=== PATIENT | female | born 1990 | race Caucasian/White ===

== ENCOUNTER → 2023-03-12 | Outpatient (CLI) | payer BC, SELFPAY ==
[2023-03-12 12:48] LABS: Erythrocyte Sedimentation Rate 4 mm/hr (0-30)
[2023-03-12 12:50] LABS: Absolute Lymphocyte Count 1.59 X10^3/uL (0.83-4.51); Absolute Neutrophil Count 4.2 X10^3/uL (2.0-7.7); Basophil# 0.02 X10^3/uL; Basophil% 0.3 % (0-1); Eosinophil# 0.17 X10^3/uL; Eosinophils% 2.7 % (0-5); Hematocrit 42.9 % (37-47); Hemoglobin 13.6 g/dL (12.0-15.0); Lymphocyte # 1.59 X10^3/ul (0.83-4.51); Lymphocyte % 25.5 % (19-41); Mean Corp Hgb Conc 31.7 g/dL (32-36); Mean Corpuscular Hgb 29.4 pg (27.0-32.0); Mean Corpuscular Volume 92.9 fL (81-99); Mean Platelet Vol. 10.9 fl (6.2-12.0); Monocyte% 4.8 % (0-10); NRBC Flagged by Analyzer 0 % (0-5); Neutrophil # 4.15 X10^3/uL (2.7-7.7); Neutrophil % 66.5 % (47-70); Platelet Count 294 K/mm3 (150-450); RBC Distribution Width CV 13.8 % (11.6-14.6); RBC Distribution Width SD 47.1 fl (35.1-43.9); Red Blood Count 4.62 M/mm3 (4.2-5.4); White Blood Count 6.2 K/mm3 (4.4-11.0)
[2023-03-12 12:54] LABS: Color, Urine Yellow (Yellow); Glucose, Dipstick Normal (Normal); Ketone-Dipstick Negative (Negative); Leukocyte Esterase-Dipstick Negative /ul (Negative); Nitrite-Dipstick Negative (Negative); Occult Blood-Urine Negative /ul (Negative); Protein-Dipstick Negative (Negative); Urine Bilirubin Dipstick Negative (Negative); Urine Clarity Sl. Cloudy (Clear); Urine Urobilinogen Normal (Normal)
[2023-03-12 13:19] LABS: Protein, Urine (Random) < 6.0 mg/dL (<11.9); Protein:Creat Ratio 269 mg/g CRE (0-200)
[2023-03-12 13:22] LABS: ALB/GLOB Ratio 1.3 RATIO (0.9-2.4); AST(SGOT) 34 U/L (15-37); Alanine Aminotransfer ALT/SGPT 56 U/L (13-56); Albumin, Serum 4.1 g/dL (3.2-5.0); Alkaline Phosphatase 73 U/L (45-117); Anion Gap 4 (5-15); BUN 15 mg/dL (7-18); BUN/Creat Ratio 24.5 RATIO (10-20); CRP < 2.90 mg/L (0.0-3.0); Calcium,Total 9.1 mg/dL (8.5-10.1); Chloride 107 mmol/L (98-107); Creatinine, Serum 0.61 mg/dL (0.55-1.02); EST Glomerular Filtration Rate 120 mL/min (>60); Est Glom Filt Rate - Afr Amer 145 mL/min (>60); Globulin 3.2 g/dL (2.2-4.2); Glucose 86 mg/dL (74-106); Potassium 3.7 mmol/L (3.5-5.1); Protein, Total 7.3 g/dL (6.4-8.2); Rheumatoid Factor < 10.0 IU/mL (<15); Sodium Level 139 mmol/L (136-145)
[2023-03-12 14:01] LABS: Hepatitis B Surface Antibody Reactive; Hepatitis B Surface Antigen Non-Reactive (Nonreactive); Hepatitis C Antibody Non-Reactive (Nonreactive)
[2023-03-19 16:10] LABS: CCP IgG Antibodies 4 units (0-19); HLA B27 Negative (.)
== END | disposition home or self-care (01) ==
LOC: MTLAB 09:44
PROVIDERS: Referring Provider Internal Medicine Rheumatology; Visit Provider Internal Medicine Rheumatology
DX: M06.4 Inflammatory polyarthropathy (principal); M35.00 Sjogren syndrome, unspecified; K21.9 Gastro-esophageal reflux disease without esophagitis; K86.81 Exocrine pancreatic insufficiency
CPT/HCPCS: 36415; 80053; 81002; 81374; 82570; 84156; 85025; 85652; 86140; 86200; 86431; 86706; 86803; 87340

== ENCOUNTER → 2023-03-31 | Outpatient (CLI) | payer BC, SELFPAY ==
[2023-03-31 12:00] LABS: Lipase 40 U/L (13-75)
[2023-04-03 19:07] LABS: Immunoglobulin A 115 mg/dL (87-352); Immunoglobulin E 14 IU/mL (6-495); Immunoglobulin G 1024 mg/dL (586-1602); Immunoglobulin G, Subclass 1 618 mg/dL (248-810); Immunoglobulin G, Subclass 2 296 mg/dL (130-555); Immunoglobulin G, Subclass 3 39 mg/dL (15-102); Immunoglobulin G, Subclass 4 52 mg/dL (2-96); Immunoglobulin M 111 mg/dL (26-217)
== END | disposition home or self-care (01) ==
PROVIDERS: Nurse Practitioner Adult Health; Referring Provider Internal Medicine Gastroenterology; Visit Provider Internal Medicine Gastroenterology
DX: K86.81 Exocrine pancreatic insufficiency (principal)
CPT/HCPCS: 36415; 82784; 82785; 82787; 83690

== ENCOUNTER 2023-06-24 11:41 | Day surgery (SDC) | payer BC, SELFPAY ==
[2023-06-24] VITALS (7 sets, daily range): BP systolic 88–121; BP diastolic 55–74; PULSE 44–54; RESP 16–17; TEMP 36.1–36.6; O2SAT 96–100; BMI 21.5
--- NOTE | 2023-06-24 | GASB_PTH ---
PATIENT: RAVEN KUMAR LOC: EN U#:[id number] AGE/SX: 33/F ROOM: RE06/24/[address]: Dr. Kehinde Street DO : 1990 BED: DIS: 06/24/2023 SPEC #: [id number] RECD: 06/24/23 14:31 STATUS: MARIAH FRANKLIN #: [id number] PAXTON: 06/24/23 00:[address]: Kehinde Street DEPT: SURGICAL PATHOLOGY RECD BY: Pedro Eckert ENTERED: 06/25/23 11:40 SP TYPE: Gastric Bx OTHR DR: Trinidad Dias Tissues: A - Duodenum, NOS B - Gastric mucous membrane Procedures: Surgery Specimen Level IV HEADER OPERATION: EGD ([facility] [place]), biopsy PRE-OP DIAGNOSIS: Exocrine pancreatic insufficiency, abdominal pain, diarrhea TISSUE SUBMITTED: A - Duodenum biopsy, B - Pylorus biopsy MICROSCOPIC DIAGNOSIS A. Duodenum, biopsy: No pathologic change. B. Gastric pylorus, biopsy: Chronic gastritis. See comment. AM:jeff 06/26/2023 COMMENT B. The results of immunohistochemistry for Helicobacter pylori will be reported separately ([id number]). MICROSCOPIC DESCRIPTION Slides are reviewed. GROSS DESCRIPTION A - Received in fixative is one container labeled with the patient's name and designated duodenum biopsy. The specimen consists of multiple irregular fragments of light polo soft tissue that in aggregate measure 1.0 x 0.3 x 0.1 cm. The specimen is totally submitted in one cassette. B - Received in fixative is one container labeled with the patient's name and designated pylorus biopsy. The specimen consists of two irregular fragments of light polo soft tissue that in aggregate measure 0.6 x 0.3 x 0.1 cm. The specimen is totally submitted in one cassette. / RODY:jeff 06/25/2023 TC:3 CPT: 86755 x2
--- NOTE | 2023-06-24 12:08 | HP.PCM_ITS ---
History and Physical Date of Admission: 06/24/23 RAVEN KUMAR, is a 32 F who presents to the office today to establish with local gastroenterology practice for EPI. Her symptoms began in spring 2020 with reflux, bloating, diarrhea; then by the time she got into an appointment with GI she was , therefore she did not have endoscopy. Her symptoms became worse with the diet Whole 30--was eating more healthy fats. Got yellow, floating diarrhea then. Put on Creon by PCP and had significant improvement in all her symptoms. She eats a very healthy diet. She has been reintroducing health fats--has more steatorrhea, more bloating, so she is wondering about increasing dose of Creon. She currently takes Creon 1 capsule with snack and 2 capsules with meal. Her reflux is usually controlled with famotidine. She has tested negative for celiac disease. She does note that when she avoids gluten her keratosis pilaris resolves. Stool tests have been negative for infection. She reports less sinus headaches when she avoids dairy. Thinks she gets gallbladder pain after dairy, ice cream--RUQ pain that radiated to right scapula, and diarrhea. She does not eat any greasy or fatty foods. She has been diagnosed with likely Sjogren's by Merchandise Worker. She has mild dry eyes and dry mouth. Follows anti-inflammatory diet. ROS Const Constitutional: No fatigue ENT ENT: No difficulty swallowing Gastro GI: Positive for bloating; No abdominal pain, belching, change in bowel habits, change in stool character, coffee ground emesis, constipation, cramping, diarrhea, heartburn, difficulty swallowing, feeling full early, excessive flatus, incontinent of stools, Vomiting blood/hematemesis, Blood in stool, loose stools, Black,tarry stools, nausea/dyspepsia, pain with swallowing, vomiting or other Musc Musculoskeletal: No joint pain Skin Skin: No yellowing of the eye or itchy eyes Psych Psychiatric: No anxiety and No depression Endo Endocrine: No fatigue Aller/Imm Allergy/Immunologic: No itchy eyes Robin/Lymp Hematologic/Lymphatic: No easy bleeding or easy bruising Exam Const General: cooperative, healthy appearing and comfortable Nutritional Appearance: average body habitus Orientation: alert, awake and oriented x3 HENMT Head: normal to inspection Eyes Sclera: sclerae normal Resp Effort & Inspection: normal respiratory effort GI Inspection: normal to inspection Skin General: no rashes or lesions noted Neuro Gait: normal gait Psych Mood: congruent mood Quality Reporting Tobacco Screening ([facility] 138) Smoking Status: Never smoker Assessment and Plan Assessment and Plan (1) Exocrine pancreatic insufficiency: Status: Chronic Plan: 32 yr old female with EPI who does well on Creon; has increased steatorrhea due to increase in healthy fats, will increase Creon to 1-2 caps with snacks and 2-3 caps with meals EPI due to ?non-celiac gluten sensitivity; will eval for IBD and autoimmune pancreatitis EGD to eval for villous blunting (she will continue to consume gluten for now); consider if we need to add colonoscopy based on lab results RUQ US (at [facility] per pt's preference) to eval gallbladder; if normal then consider HIDA scan (2) Abdominal pain: Status: Acute Plan: see above (3) Diarrhea: Status: Acute Plan: see above Orders: Orders Lipase 03/31/23 K86.81 - Exocrine pancreatic insufficiency Immunoglobulins G/A/M/E 03/31/23 K86.81 - Exocrine pancreatic insufficiency IgG Subclasses 03/31/23 K86.81 - Exocrine pancreatic insufficiency Abdomen Limited 03/31/23 K86.81 - Exocrine pancreatic insufficiency, R10.9 - Unspecified abdominal pain, R19.7 - Diarrhea, unspecified Miscellaneous Lab Procedure 03/31/23 K86.81 - Exocrine pancreatic insufficiency Medications: New [id number]-[id number] 36,000-114,000- 180,000 unit (Creon) take 1-2 capsules with snacks, take 2-3 capsules with meals 360 caps 5RF I have examined the patient and the H&P has been reviewed. There are no clinical changes since date of exam.
[2023-06-24] MEDS: Lactated Ringers 1,000 ML 15 ML IV (12:11)
[2023-06-24 12:20] LABS: Internal QC Validated? YES +Cl - CLEAR BKGD
[2023-06-24 12:22] LABS: Pregnancy, Urine Negative Negative
--- NOTE | 2023-06-24 12:45 | IMM_PTH ---
PATIENT: RAVEN KUMAR LOC: EN U#:[id number] AGE/SX: 33/F ROOM: RE06/24/[address]: Dr. Kehinde Street DO : 1990 BED: DIS: 06/24/2023 SPEC #: [id number] RECD: 06/25/23 13:46 STATUS: MARIAH REQ #: [id number] PAXTON: 06/24/23 12:[address]: Kehinde Street DEPT: IMMUNOHISTOCHEMISTRY RECD BY: Lidia Mcclendon ENTERED: 06/25/23 13:47 SP TYPE: IMMUNO OTHR DR: Trinidad Dias Tissues: B - Pyloric antrum Procedures: H Pylori (initial) PHYSICIAN & INSTITUTION [place] [id number] SPECIMEN INFORMATION: Tissue Source: B - Pylorus Clinical Info: Exocrine pancreatic insufficiency, abdominal pain, diarrhea Specimen Number: [id number] CPT code: 26311 METHODOLOGY: Deparaffinized sections of prefer/formalin-fixed tissue or PAP/DQ stained slides are incubated with monoclonal/polyclonal antibodies/oligonucleotide probes. Localization is made via biotin free immunoperoxidase method. Appropriate controls are performed and reacted as expected. Results on target cell population are indicated in the following table: RESULTS: ANTIBODY / CLONE RESULT Block B H Pylori (polyclonal) negative These tests were developed and their performance characteristics determined by [facility]. They may not have been cleared or approved by the U.S. Food and Drug Administration. The FDA has determined that such clearance or approval is not necessary. The above immunohistochemical/dualISH markers are ordered and reviewed by the Pathologist. INTERPRETATION: Monica Pylorus, biopsy: Negative for Helicobacter pylori organisms. AM:jeff 06/26/2023
--- NOTE | 2023-06-24 13:15 | OP.EGD_ITS ---
Patient Name: Felisa Keys Procedure Date: 06/24/2023 12:43 PM Date of : 1990 Age: 33 Procedure: Upper GI endoscopy Indications: Epigastric abdominal pain, Personal history of digestive disease (unspecified) Providers: Kehinde Street DO Referring MD: Kehinde Street DO Medicines: Monitored Anesthesia Care Patient Profile: This is a 33 year old female. Refer to note in patient chart for documentation of history and physical. Patient has symptoms of chronic epigastric abdominal pain. Complications: No immediate complications. Procedure: Pre-Anesthesia Assessment: - Prior to the procedure, a History and Physical was performed, and patient medications and allergies were reviewed. The patient is competent. The risks and benefits of the procedure and the sedation options and risks were discussed with the patient. All questions were answered and informed consent was obtained. Patient identification and proposed procedure were verified by the physician. Mental Status Examination: normal. Prophylactic Antibiotics: The patient does not require prophylactic antibiotics. Prior Anticoagulants: The patient has taken no previous anticoagulant or antiplatelet agents. ASA Grade Assessment: II - A patient with mild systemic disease. After reviewing the risks and benefits, the patient was deemed in satisfactory condition to undergo the procedure. The anesthesia plan was to use monitored anesthesia care (MAC). Immediately prior to administration of medications, the patient was re-assessed for adequacy to receive sedatives. The heart rate, respiratory rate, oxygen saturations, blood pressure, adequacy of pulmonary ventilation, and response to care were monitored throughout the procedure. The physical status of the patient was re-assessed after the procedure. After obtaining informed consent, the endoscope was passed under direct vision. Throughout the procedure, the patient's blood pressure, pulse, and oxygen saturations were monitored continuously. The Endoscope was introduced through the mouth, and advanced to the second part of duodenum. The upper GI endoscopy was accomplished without difficulty. The patient tolerated the procedure well. Scope In: 12:53:25 PM Scope Out: 12:59:37 PM Total Procedure Duration Time 0 hours 6 minutes 12 seconds Findings: The examined esophagus was normal. Patchy mildly erythematous mucosa without bleeding was found in the prepyloric region of the stomach and at the pylorus. Biopsies were taken with a cold forceps for histology. Verification of patient identification for the specimen was done. Estimated blood loss was minimal. No gross lesions were noted in the second portion of the duodenum. Biopsies were taken with a cold forceps for histology. Verification of patient identification for the specimen was done. Estimated blood loss was minimal. Impression: - Normal esophagus. - Erythematous mucosa in the prepyloric region of the stomach and pylorus. Biopsied. - No gross lesions in the second portion of the duodenum. Biopsied. Recommendation: - Discharge patient to home. - Resume previous diet. - Continue present medications. - Await pathology results. - Upper GI with small bowel follow-through to look for superior mesenteric artery syndrome - Gastric emptying study Procedure Code(s): --- Professional --- 03853, Esophagogastroduodenoscopy, flexible, transoral; with biopsy, single or multiple CPT copyright 2017 [employer]. All rights reserved. The codes documented in this report are preliminary and upon sap business objects developer review may be revised to meet current compliance requirements. Kehinde Street DO 06/24/2023 1:14:50 PM This report has been signed electronically. Number of Addenda: 0 Note Initiated On: 06/24/2023 12:43 PM
--- NOTE | 2023-06-24 13:15 | OP.CCLET_ITS ---
06/24/2023 Rani Dias Re : Upper GI endoscopy procedure for Felisa Negror Arun This procedure was performed on Saturday, June 24, 2023. My impressions and recommendations are as follows: Impressions : - Normal esophagus. - Erythematous mucosa in the prepyloric region of the stomach and pylorus. Biopsied. - No gross lesions in the second portion of the duodenum. Biopsied. Recommendations : - Discharge patient to home. - Resume previous diet. - Continue present medications. - Await pathology results. - Upper GI with small bowel follow-through to look for superior mesenteric artery syndrome - Gastric emptying study My findings are described in the full procedure note, which is enclosed. If I can be of further assistance, please feel free to contact me at . Sincerely, Kehinde Street, 06/24/2023 1:14:50 PM This report has been signed electronically.
== END 2023-06-24 13:56 | disposition home or self-care (01) ==
LOC: EN 11:42 → AC 11:45
PROVIDERS: Anesthesiology; Referring Provider Internal Medicine Gastroenterology; Visit Provider Internal Medicine Gastroenterology
PROC: 0DJ08ZZ Inspection of Upper Intestinal Tract, Via Natural or Artificial Opening Endoscopic (ICD-10-PCS; CPT 43235; principal; 2023-06-24 12:40)
DX: K29.50 Unspecified chronic gastritis without bleeding (principal); K86.81 Exocrine pancreatic insufficiency; K21.9 Gastro-esophageal reflux disease without esophagitis; Z79.899 Other long term (current) drug therapy; Z87.19 Personal history of other diseases of the digestive system
CPT/HCPCS: 43239; 81025; 88305; 88342; J7120; J2405

== ENCOUNTER → 2024-01-23 | Outpatient (CLI) | payer BC, SELFPAY ==
[2024-01-23 10:26] LABS: Erythrocyte Sedimentation Rate 4 mm/hr (0-30)
[2024-01-23 10:29] LABS: Absolute Lymphocyte Count 1.69 X10^3/uL (0.83-4.51); Basophil# 0.05 X10^3/uL; Eosinophil# 0.04 X10^3/uL; Eosinophils% 0.8 % (0-5); Hematocrit 38.7 % (37-47); Hemoglobin 12.5 g/dL (12.0-15.0); Lymphocyte # 1.69 X10^3/ul (0.83-4.51); Mean Corp Hgb Conc 32.3 g/dL (32-36); Mean Corpuscular Hgb 29.1 pg (27.0-32.0); Mean Corpuscular Volume 90.2 fL (81-99); Monocyte# 0.29 X10^3/uL; Monocyte% 5.7 % (0-10); NRBC Flagged by Analyzer 0 % (0-5); Neutrophil # 3.04 X10^3/uL (2.7-7.7); Neutrophil % 59.3 % (47-70); Platelet Count 301 K/mm3 (150-450); RBC Distribution Width CV 13.4 % (11.6-14.6); Red Blood Count 4.29 M/mm3 (4.2-5.4); White Blood Count 5.1 K/mm3 (4.4-11.0)
[2024-01-23 10:47] LABS: Progesterone Level 0.52 ng/mL (See Comment); Vitamin B12 689 pg/mL (211-911)
[2024-01-23 12:01] LABS: ALB/GLOB Ratio 1.4 RATIO (0.9-2.4); AST(SGOT) 30 U/L (15-37); Alanine Aminotransfer ALT/SGPT 47 U/L (13-56); Albumin, Serum 4.2 g/dL (3.2-5.0); Alkaline Phosphatase 69 U/L (45-117); Amylase 59 U/L (25-115); Anion Gap 4 (5-15); BUN 20 mg/dL (7-18); BUN/Creat Ratio 29.1 RATIO (10-20); CRP < 2.90 mg/L (0.0-3.0); Calcium,Total 9.1 mg/dL (8.5-10.1); Chloride 108 mmol/L (98-107); Creatinine, Serum 0.69 mg/dL (0.55-1.02); EST Glomerular Filtration Rate 104 mL/min (>60); Est Glom Filt Rate - Afr Amer 126 mL/min (>60); Estradiol 13.5 pg/mL; Follicle Stimulating Hormone 14.7 mIU/mL; Globulin 3.1 g/dL (2.2-4.2); Glucose 84 mg/dL (74-106); Lipase 36 U/L (13-75); Luteinizing Hormone 1.7 mIU/mL; Potassium 3.5 mmol/L (3.5-5.1); Protein, Total 7.3 g/dL (6.4-8.2); Sodium Level 139 mmol/L (136-145); Thyroid Stim Hormone (TSH) 1.51 uIU/mL (0.358-3.74); Triglycerides 44 mg/dL
[2024-01-28 01:07] LABS: Beef <0.10 kU/L (Class 0); Chocolate <0.10 kU/L (Class 0); Codfish <0.10 kU/L (Class 0); Corn <0.10 kU/L (Class 0); Egg, Whole <0.10 kU/L (Class 0); Milk (Cow) <0.10 kU/L (Class 0); Mussels <0.10 kU/L (Class 0); Peanut <0.10 kU/L (Class 0); Pork <0.10 kU/L (Class 0); Salmon <0.10 kU/L (Class 0); Shrimp <0.10 kU/L (Class 0); Soybean <0.10 kU/L (Class 0); Tuna <0.10 kU/L (Class 0); Vitamin D 1,25-Dihydroxy 50.9 pg/mL (24.8-81.5); Wheat <0.10 kU/L (Class 0)
[2024-01-30 16:09] LABS: ACCA 8 units (0-90); AMCA 23 units (0-100); Aldosterone, Serum 1.8 ng/dL (0.0-30.0); Anti-Parietal Cell AB, QN 9.6 Units (0.0-20.0); Cytoplasmic Ab (C-ANCA) <1:20 titer (Neg:<1:20); Endomysial Antibody IgA Negative (Negative); Estrogen, Total, Serum 68 pg/mL (.); Gastrin, Serum 74 pg/mL (0-115); IgG, Quant 877 mg/dL (586-1602); Immunoglobulin A 105 mg/dL (87-352); Immunoglobulin E 11 IU/mL (6-495); Immunoglobulin G, Subclass 1 591 mg/dL (248-810); Immunoglobulin G, Subclass 2 314 mg/dL (130-555); Immunoglobulin G, Subclass 3 43 mg/dL (15-102); Immunoglobulin G, Subclass 4 49 mg/dL (2-96); Immunoglobulin M 109 mg/dL (26-217); Intrinsic Factor Ab 1.1 AU/mL (0.0-1.1); Perinuclear Ab (P-ANCA) <1:20 titer (Neg:<1:20); gASCA 0 units (0-50); t-Transglutaminase IgA <2 U/mL (0-3)
[2024-02-25 14:49] LABS: ALCA 4 units (0-60)
== END | disposition home or self-care (01) ==
LOC: LAB 09:46
PROVIDERS: Referring Provider Internal Medicine Gastroenterology; Visit Provider Internal Medicine Gastroenterology
DX: R19.7 Diarrhea, unspecified (principal); R10.9 Unspecified abdominal pain; K86.81 Exocrine pancreatic insufficiency
CPT/HCPCS: 36415; 80053; 82088; 82150; 82607; 82652; 82670; 82672; 82746; 82784; 82785; 82787; 82941; 83001; 83002; 83516; 83690; 84144; 84439; 84443; 84478; 85025; 85652; 86003; 86005; 86036; 86140; 86255; 86256; 86316; 86340; 86671